=== PATIENT | female | born 1995 | race Caucasian/White ===

== ENCOUNTER 2016-06-22 16:21 | Emergency (ER) | payer SELFPAY ==
--- NOTE | 2016-06-22 16:54 | EDM.PDOC ---
ED HPI Trauma - General Chief Complaint: Upper Extremity Injury/Pain Stated Complaint: PAIN RT WRIST Time Seen by Provider: 06/22/16 16:40 Source: Reports: Patient History Limitations: Reports: No limitations - History of Present Illness INITIAL COMMENTS - FREE TEXT/NARRATIVE: HISTORY AND PHYSICAL: History of present illness: [Patient comes to the emergency room complaining of right wrist pain. She states that she slipped on some ice last night, landing with her right arm outstretched behind her with her wrist flexed. She's had pain, bruising and swelling since it occurred. Previous right wrist fracture approximately 5 years ago. No numbness or tingling. No other injuries sustained in the fall.] Review of systems: As per history of present illness and below otherwise all systems reviewed and negative. Past medical history: As per history of present illness and as reviewed below otherwise noncontributory. Surgical history: As per history of present illness and as reviewed below otherwise noncontributory. Social history: No reported history of drug or alcohol abuse. Family history: As per history of present illness and as reviewed below otherwise noncontributory. Physical exam: HEENT: Atraumatic, normocephalic. Extremities: Left wrist is mildly swollen and bruised. Has pain with flexion and extension of her R wrist, as well as rotation and lateral flexion. Cap refill <2 seconds. Neurovascular unremarkable. Neuro: Awake, alert, oriented. Exam nonfocal. Diagnostics: [Right wrist x-ray] Impression: [Right wrist strain] Plan: [Wrist x-ray is negative for fracture dislocation. Patient is placed in a wrist splint. Tylenol or ibuprofen as needed for discomfort. All questions are answered and concerns are addressed.] Definitive disposition and diagnosis as appropriate pending reevaluation and review of above. Allergies/ADRs: Allergies lidocaine Allergy (Verified 06/22/16 16:23) Other Penicillins Allergy (Verified 06/22/16 16:23) Other Home Medications: Ambulatory Orders . 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 (see below) Other OB/BYN History: Neurological History: Reports: None Psychiatric History: Reports: None Endocrine/Metabolic History: Reports: None Hematologic History: Reports: None Immunologic History: Reports: None Oncologic (Cancer) History: Reports: None Dermatologic History: Reports: None - Infectious Disease History Infectious Disease History: Reports: Chicken pox - Past Surgical History Head Surgeries/Procedures: Reports: None HEENT Surgical History: Reports: Adenoidectomy, Tonsillectomy Musculoskeletal Surgical History: Reports: Arthroscopic knee, Other (see below) Other Musculoskeletal Surgeries/Procedures:: rt knee cyst removal, cartlidge replaced Social & Family History - Family History Family Medical History: Noncontributory - Tobacco Use Smoking Status *Q: Current Every Day Smoker Years of Tobacco use: 6 Packs/Tins Daily: 0.5 - Caffeine Use Caffeine Use: Reports: Coffee, Energy drinks Caffeine Use Comment: 2-3/day - Recreational Drug Use Recreational Drug Use: No Review of Systems - Review of Systems Review Of Systems: See Below Trauma Exam - Physical Exam Exam: See Below Course - Vital Signs Last Recorded V/S: Last Vital Signs Temp 98.3 F 06/22/16 17:30 Pulse 71 06/22/16 17:30 Resp 16 06/22/16 17:30 BP 116/60 06/22/16 17:30 Pulse Ox 98 06/22/16 17:30 - Orders/Labs/Meds Orders: Active Orders 24 hr Category Date Time Status Wrist Comp Min 3V Rt [CR] Stat Exams 06/22/16 16:39 Taken Departure - Departure Time of Disposition: 17:20 Disposition: Home, Self-Care 01 Condition: good Clinical Impression: Right wrist sprain Qualifiers: Encounter type: initial encounter Qualified Code(s): S63.501A - Unspecified sprain of right wrist, initial encounter Instructions: Wrist Pain, [id number] Referrals: PCP,None [Primary Care Provider] - Forms: ED Department Discharge Additional Instructions: The following information is given to patients seen in the emergency department who are being discharged to home. This information is to outline your options for follow-up care. We provide all patients seen in our emergency department with a follow-up referral. The need for follow-up, as well as the timing and circumstances, are variable depending upon the specifics of your emergency department visit. If you don't have a primary care physician on staff, we will provide you with a referral. We always advise you to contact your personal physician following an emergency department visit to inform them of the circumstance of the visit and for follow-up with them and/or the need for any referrals to a consulting specialist. The emergency department will also refer you to a specialist when appropriate. This referral assures that you have the opportunity for follow-up care with a specialist. All of these measure are taken in an effort to provide you with optimal care, which includes your follow-up. Under all circumstances we always encourage you to contact your private physician who remains a resource for coordinating your care. When calling for follow-up care, please make the office aware that this follow-up is from your recent emergency room visit. If for any reason you are refused follow-up, please contact the [facility] emergency department at and asked to speak to the emergency department charge nurse. [facility] Primary [facility] [address] [place] [id number] Followup with your local primary care provider or at the clinic listed above in 48-72 hours. Wear wrist brace until pain has improved. May apply ice and elevate as much as necessary. Recommend Tylenol alternating with ibuprofen for discomfort. Return to ER as needed as discussed - My Orders Last 24 Hours: My Active Orders 06/22/16 16:39 Wrist Comp Min 3V Rt [CR] Stat - Assessment/Plan Last 24 Hours: My Active Orders 06/22/16 16:39 Wrist Comp Min 3V Rt [CR] Stat
[2016-06-22 17:40] VITALS: BP 116/60
--- NOTE | 2016-06-23 18:47 | CR ---
EXAM DATE: 06/22/16 PATIENT'S AGE: 20 Patient: SUJEY GO Facility: [place], [place] Site . Site : 1995 Study: XRay Extremity Right wrist [id number]/5/[id number] 4:54:28 PM Ordering Physician: Doctor Velazquez Final Report: INDICATION: injury, pain with movement INDICATION: Injury. Pain with movement. TECHNIQUE: Right wrist, three views. COMPARISON: None FINDINGS: Bones: Alignment is normal. No fractures or bone lesions. Joint spaces: Unremarkable. Soft tissues: Unremarkable. IMPRESSION: No acute bone abnormality. The proximal/distal rows of the carpus are intact. Dictated by Arthur George MD @ 06/22/2016 5:13:58 PM Dictated by: Arthur George MD @ 06/22/2016 17:14:08 (Electronic Signature) Report Signed by Proxy and Original Signed Document filed in the Medical Record. MTDD
== END 2016-06-22 17:30 | disposition home or self-care (01) ==
LOC: MW.ED 16:21
DX: S63.501A Unspecified sprain of right wrist, initial encounter (principal); F17.210 Nicotine dependence, cigarettes, uncomplicated; Z98.890 Other specified postprocedural states; W00.0XXA Fall on same level due to ice and snow, initial encounter
CPT/HCPCS: 73110-26-RT; 73110-RT; 99282; 99283

== ENCOUNTER 2017-12-18 04:35 | Inpatient (IN) | payer MEDICAID ==
[2017-12-18] MEDS: Lactated Ringers 1,000 ML IV SCH ×2 (05:16→06:40)
[2017-12-18] MEDS ORDERED: Citric Acid/Sodium Citrate Solution 30 ML Cup PO ONE (05:28)
[2017-12-18] MEDS ORDERED: Sodium Chloride 0.9% 10 ML Syringe FLUSH PRN (05:28)
[2017-12-18] MEDS ORDERED: Sodium Chloride 0.9% 2.5 ML Syringe FLUSH PRN (05:28)
[2017-12-18] MEDS ORDERED: Oxytocin/0.9 % Sodium Chloride 30 UNIT/500 ML BAG IV SCH (05:30)
[2017-12-18] MEDS ORDERED: Azithromycin 500 MG in Sodium Chloride 0.9% 500 ML IV ONE (05:36)
--- NOTE | 2017-12-18 06:37 | PCM.PREANE ---
Preanesthetic Assessment - Anesthesia/Transfusion/Family Hx Anesthesia History: Prior Anesthesia Without Reaction Transfusion History: No Prior Transfusion(s) - Review of Systems General: No Symptoms Pulmonary: No Symptoms Cardiovascular: No Symptoms Gastrointestinal: No Symptoms Neurological: No Symptoms Other: Reports: None - Physical Assessment Height: 5 ft 2 in Weight: 70.307 kg ASA Class: 2 Mental Status: Alert & Oriented x3 Airway Class: Mallampati = 2 Dentition: Reports: Normal Dentition Thyro-Mental Finger Breadths: 3 Mouth Opening Finger Breadths: 3 ROM/Head Extension: Full Lungs: Clear to Auscultation, Normal Respiratory Effort Cardiovascular: Regular Rate, Regular Rhythm - Lab Values: Laboratory Last Values WBC 16.04 K/uL (4.0-11.0) H 12/18/17 05:50 RBC 3.37 M/uL (4.30-5.90) L 12/18/17 05:50 Hgb 9.9 g/dL (12.0-16.0) L 12/18/17 05:50 Hct 30.1 % (36.0-46.0) L 12/18/17 05:50 MCV 89.3 fL (80.0-98.0) 12/18/17 05:50 MCH 29.4 pg (27.0-32.0) 12/18/17 05:50 MCHC 32.9 g/dL (31.0-37.0) 12/18/17 05:50 RDW Std Deviation 46.0 fl (28.0-62.0) 12/18/17 05:50 RDW Coeff of Tiffany 14 % (11.0-15.0) 12/18/17 05:50 Plt Count 337 K/uL (150-400) 12/18/17 05:50 MPV 10.30 fL (7.40-12.00) 12/18/17 05:50 Nucleated RBC % 0.0 /100WBC 12/18/17 05:50 Nucleated RBCs # 0 K/uL 12/18/17 05:50 Blood Type B POSITIVE 12/17/17 12:11 Antibody Screen NEGATIVE 12/17/17 12:11 Crossmatch See Detail 12/17/17 12:11 - Allergies Allergies/Adverse Reactions: Allergies Allergy/AdvReac Type Severity Reaction Status Date / Time lidocaine Allergy Cannot Verified 12/18/17 04:15 Remember Penicillins Allergy Cannot Verified 12/18/17 04:15 Remember - Anesthesia Plan Free Text/Narrative:: Patient Type and Crossed due to anemia on admission, prior to hydration. 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 History: Reports: : 5 Para: 1 LMP (Approximate): Other OB/BYN History: Musculoskeletal History: Reports: Fracture Neurological History: Reports: Concussion Psychiatric History: Reports: None Endocrine/Metabolic History: Reports: None Hematologic History: Reports: Anemia Immunologic History: Reports: None Oncologic (Cancer) History: Reports: None Dermatologic History: Reports: None - Infectious Disease History Infectious Disease History: Reports: Chicken Pox - Past Surgical History Head Surgeries/Procedures: Reports: None Female Surgical History: Reports: Section (Classical incision) Musculoskeletal Surgical History: Reports: Arthroscopic Knee, Other (See Below) Other Musculoskeletal Surgeries/Procedures:: surgical tx for fx rt elbow and rt wrist - SUBSTANCE USE Smoking Status *Q: Current Every Day Smoker Tobacco Use Within Last Twelve Months: Cigarettes Second Hand Smoke Exposure: Yes Recreational Drug Use History: No - HOME MEDS Home Medications: Home Meds PNV95/Ferrous Fumarate/FA [ Vitamin Tablet] 1 tab PO DAILY 12/15/17 [ History] - CURRENT (IN HOUSE) MEDS Current Meds: Current Medications Azithromycin 500 mg/ Sodium (Chloride) 500 mls @ 500 mls/hr IV ONETIME ONE Stop: 12/18/17 06:35 Lactated Ringer's (Ringers, Lactated) 1,000 mls @ 500 mls/hr IV BOLUS MARGARET Last Admin: 12/18/17 05:16 Dose: 500 mls/hr Oxytocin/Sodium Chloride (Oxytocin 30 Unit/500 Ml-Ns) 30 unit in 500 mls @ 250 mls/hr IV TITRATE MARGARET Sodium Chloride (Saline Flush) 10 ml FLUSH ASDIRECTED PRN PRN Reason: Keep Vein Open Sodium Chloride (Saline Flush) 2.5 ml FLUSH ASDIRECTED PRN PRN Reason: Keep Vein Open Discontinued Medications Citric Acid/Sodium Citrate (Bicitra Solution) 30 ml PO ONETIME ONE Stop: 12/18/17 05:29
[2017-12-18] MEDS ORDERED: Oxytocin 10 Units/1 ML SDV ONE (06:48)
[2017-12-18] MEDS ORDERED: Morphine PF 1 MG/ML Amp ONE (06:48)
[2017-12-18] MEDS ORDERED: Ondansetron 4 MG/2 ML SDV ONE (06:48)
[2017-12-18] MEDS ORDERED: Azithromycin 500 MG in Sodium Chloride 0.9% 250 ML IV ONE (07:15)
[2017-12-18] MEDS ORDERED: Octyl 2-Cyanoacrylate 1 Tube ONE (07:30)
--- NOTE | 2017-12-18 07:34 | PCM.SN ---
- Free Text/Narrative Note: pt seen and interviewed. prior emergent c/s for distress at 29 weeks. Plan spinal with duramorph
[2017-12-18] MEDS ORDERED: Phenylephrine 1% 10 MG/ML SDV ONE (07:46)
[2017-12-18] MEDS ORDERED: Methylergonovine 0.2 MG/1 ML Amp ONE (07:50)
[2017-12-18] MEDS ORDERED: fentaNYL 100 MCG/2 ML SDV IVPUSH PRN (07:55)
[2017-12-18] MEDS ORDERED: Acetaminophen/oxyCODONE 325-5 MG Tab PO PRN ×3 (07:55→08:20)
[2017-12-18] MEDS ORDERED: Bisacodyl 10 MG Supp RECTAL PRN (08:20)
[2017-12-18] MEDS ORDERED: Ondansetron 4 MG/2 ML SDV IV PRN (08:20)
[2017-12-18] MEDS ORDERED: Lanolin 100% Cream 7 GM Tube TOP PRN (08:20)
--- NOTE | 2017-12-18 08:20 | PCM.OPNOTE ---
- General Post-Op/Procedure Note Date of Surgery/Procedure: 12/18/17 Operative Procedure(s): repeat low transverse Findings: Liveborn male 12/27 weight 2640 grams, normal appearing uterus, tubes and ovaries with 2 right paratubal cysts noted Pre Op Diagnosis: 37 weeks intrauterine , prior classical Post-Op Diagnosis: Same Anesthesia Technique: Spinal Primary Surgeon: Laurie Crowley Anesthesia Provider: Kt Saldaña Pathology: none Fluid Replacement, Intraop: 1,500 EBL in mLs: 500 Complications: None known Condition: Stable
[2017-12-18] MEDS ORDERED: Lactated Ringers 1,000 ML IV SCH (08:30)
[2017-12-18] MEDS: Ketorolac 30 MG/ML SDV IVPUSH SCH ×3 (08:40→20:22)
--- NOTE | 2017-12-18 09:14 | PCM.POSTAN ---
POST ANESTHESIA ASSESSMENT - MENTAL STATUS Mental Status: Alert, Oriented - RESPIRATORY Respiratory Status: Respiratory Rate WNL, Airway Patent, O2 Saturation Stable - CARDIOVASCULAR CV Status: Pulse Rate WNL, Blood Pressure Stable - GASTROINTESTINAL GI Status: No Symptoms - POST OP HYDRATION Hydration Status: Adequate & Stable
[2017-12-18] MEDS: diphenhydrAMINE 50 MG/ML SDV IVPUSH PRN ×2 (10:04→17:07)
--- NOTE | 2017-12-18 11:48 | OR ---
SURGEON: Laurie Crowley M.D. DATE OF PROCEDURE: 12/18/2017 PREOPERATIVE DIAGNOSES: 1. 37 week intrauterine . 2. Prior classical uterine incision. POSTOPERATIVE DIAGNOSES: 1. 37 week intrauterine . 2. Prior classical uterine incision. PROCEDURE: Repeat low-transverse section. ANESTHESIA: Spinal. ESTIMATED BLOOD LOSS: 500 mL. FLUIDS: 1500 mL crystalloid. FINDINGS: Live-born male, scores 9 and 9, weighing 2640 g. Normal-appearing uterus, tubes, and ovaries. Note of 2 small paratubal cysts on the right. COMPLICATIONS: None known. DISPOSITION: Mother is in recovery in good condition. Infant is in nursery in good condition. BRIEF HISTORY: This is a 22-year-old female, she has had 1 prior requiring a vertical extension of the incision. Therefore I did recommend delivery at 37 weeks. She had received steroids, 2 doses one week ago and presents for repeat delivery. Risks were discussed including bleeding, infection, injury to bowel, bladder, blood vessels, ureters, or other organs, risk of thromboembolic event, risk of anesthesia. Understanding all these risks, she does desire to proceed. DESCRIPTION OF PROCEDURE: With the patient in left tilt position, under adequate spinal analgesia, the abdomen was prepped with chlorhexidine and draped in usual fashion for abdominal surgery. SCDs were in place. Bolaños catheter was in place. She had received 500 mg of Ancef IV due penicillin allergy. An appropriate time-out was held. After documentation of adequate analgesia, the prior cicatrix was excised. The incision was carried through the subcutaneous tissue to the fascia, which was scored transversely in the midline. The fascial incision was elevated from the underlying rectus muscle using sharp and blunt dissection. The rectus muscles were in the midline using sharp dissection. A finger was placed into the peritoneal cavity, there were adhesions of the omentum off to the left of the incision. Otherwise, no pelvic or peritoneal adhesions. The incision was extended using sharp and blunt dissection. The En O retractor was placed. The visceroperitoneum over the lower uterine segment was incised and an adequate bladder flap was developed. A transverse curvilinear incision was made over the lower uterine segment with a scalpel. A finger was used to extend this incision. The amniotic membranes were ruptured, clear fluid was noted. The head and body were delivered via the uterine incision with fundal pressure without any difficulty. The was bulb suctioned by nose and mouth. The cord was clamped x2 and cut. The handed to the nurse in attendance at delivery. The infant is a liveborn male, scores 9 and 9, weighing 2640 g. Cord blood was collected for cord ABGs as well as routine cord blood sampling. The placenta was removed by manual extraction. The cervix was opened with a ring forceps. The uterus was cleaned with a dry laparotomy tape. The uterus was noted to be somewhat boggy, therefore the patient received Methergine 0.2 mg subcu. With this, there was excellent tone of the uterus. The uterine incision was closed with a running lock suture of 0 Polysorb followed by an imbricating layer of 0 Polysorb. The posterior cul-de-sac and paracolic gutters were cleaned and inspected. Tubes and ovaries appeared normal. Uterine incision required one additional [id number] suture in the midline for complete hemostasis. The uterine incision was carefully inspected and was hemostatic, therefore the En O retractor was removed. Final inspection was performed with complete hemostasis noted. Therefore, the rectus muscle and peritoneum were loosely approximated in the midline using a running mattress suture of 0 Polysorb. The posterior aspect of the fascia was inspected, any areas of bleeding that were noted were cauterized. The fascial incision was closed with a running suture of 0 Polysorb and subcutaneous tissue was irrigated. Any areas of bleeding that were noted were cauterized. The skin was closed with a running subcuticular suture of 3-0 Monocryl followed by Dermabond. Final sponge, needle, and instrument counts were reported as correct. There were no known complications. Mother is in recovery in good condition. in nursery in good condition. MARY / AVINASH /[id number]
[2017-12-18] MEDS: Nalbuphine 10 MG/1 ML Vial IVPUSH PRN ×2 (14:24→20:23)
--- NOTE | 2017-12-18 14:24 | PCM48HPAN ---
Post Anesthesia Note - EVALUATION WITHIN 48HRS OF ANESTHETIC Vital Signs in Normal Range: Yes Patient Participated in Evaluation: Yes Respiratory Function Stable: Yes Airway Patent: Yes Cardiovascular Function Stable: Yes Hydration Status Stable: Yes Pain Control Satisfactory: Yes Nausea and Vomiting Control Satisfactory: Yes Mental Status Recovered: Yes Resp Rate: 18
[2017-12-18] MEDS: Docusate Sodium 100 MG Cap PO SCH ×2 (14:49→20:20)
[2017-12-18] MEDS: Prenatal Multivitamin and Multimineral with Iron Tab PO SCH (19:12)
[2017-12-19] MEDS: Ketorolac 30 MG/ML SDV IVPUSH SCH ×2 (02:44→08:26)
[2017-12-19] MEDS: Nalbuphine 10 MG/1 ML Vial IVPUSH PRN ×2 (04:05→07:58)
--- NOTE | 2017-12-19 05:32 | PCM.PNPP ---
- General Info Date of Service: 12/19/17 Admission Dx/Problem (Free Text): 22 yo P2 s/p repeat POD1 Subjective Update: Patient seen at bedside denies any complain , U/O is adequate , pain well controlled , lepe in place tolerate regular diet Functional Status: Reports: Pain Controlled, Tolerating Diet - Review of Systems General: Reports: No Symptoms HEENT: Reports: No Symptoms Pulmonary: Reports: No Symptoms Cardiovascular: Reports: No Symptoms Gastrointestinal: Reports: No Symptoms Genitourinary: Reports: No Symptoms Musculoskeletal: Reports: No Symptoms Skin: Reports: No Symptoms Neurological: Reports: No Symptoms Psychiatric: Reports: No Symptoms - General Info Date of Service: 12/19/17 - Patient Data Vital Signs - Most Recent: Last Vital Signs Temp 36.6 C 12/19/17 04:00 Pulse 64 12/19/17 04:00 Resp 14 12/19/17 04:00 BP 109/51 L 12/19/17 04:00 Pulse Ox 97 12/19/17 04:00 Weight - Most Recent: 70.307 kg I&O - Last 24 Hours: Intake & Output 12/18/17 12/18/17 12/19/17 14:59 22:59 06:59 Intake Total 3200 3875 Output Total 600 2600 Balance 2600 1275 Lab Results - Last 24 Hours: Laboratory Results - last 24 hr 12/17/17 12/18/17 12/18/17 Range/Units 12:11 05:50 07:46 WBC 16.04 H (4.0-11.0) K/uL RBC 3.37 L (4.30-5.90) M/uL Hgb 9.9 L (12.0-16.0) g/dL Hct 30.1 L (36.0-46.0) % MCV 89.3 (80.0-98.0) fL MCH 29.4 (27.0-32.0) pg MCHC 32.9 (31.0-37.0) g/dL RDW Std Deviation 46.0 (28.0-62.0) fl RDW Coeff of Tiffany 14 (11.0-15.0) % Plt Count 337 (150-400) K/uL MPV 10.30 (7.40-12.00) fL Nucleated RBC % 0.0 /100WBC Nucleated RBCs # 0 K/uL Cord ABG pH 7.335 (7.18-7.38) Cord ABG Base Excess -3 (-10--2) Cord VBG pH (7.25-7.45) Cord VBG Base Excess (-10--2) Blood Type B POSITIVE Antibody Screen NEGATIVE Crossmatch See Detail 12/18/17 Range/Units 07:46 WBC (4.0-11.0) K/uL RBC (4.30-5.90) M/uL Hgb (12.0-16.0) g/dL Hct (36.0-46.0) % MCV (80.0-98.0) fL MCH (27.0-32.0) pg MCHC (31.0-37.0) g/dL RDW Std Deviation (28.0-62.0) fl RDW Coeff of Tiffany (11.0-15.0) % Plt Count (150-400) K/uL MPV (7.40-12.00) fL Nucleated RBC % /100WBC Nucleated RBCs # K/uL Cord ABG pH (7.18-7.38) Cord ABG Base Excess (-10--2) Cord VBG pH 7.362 (7.25-7.45) Cord VBG Base Excess -5 (-10--2) Blood Type Antibody Screen Crossmatch Med Orders - Current: Current Medications Bisacodyl (Dulcolax) 10 mg RECTAL ONETIME PRN PRN Reason: Constipation Diphenhydramine HCl (Benadryl) 25 mg IVPUSH Q6H PRN PRN Reason: Itching or Nausea Last Admin: 12/18/17 17:07 Dose: 25 mg Docusate Sodium (Colace) 100 mg PO BID MARGARET Last Admin: 12/18/17 20:20 Dose: 100 mg Emollient Ointment (Lansinoh Hpa) 0 gm TOP ASDIRECTED PRN PRN Reason: Sore Nipples Last Admin: 12/18/17 20:21 Dose: 1 tube Fentanyl (Sublimaze) 50 mcg IVPUSH Q5M PRN PRN Reason: Pain (severe 7-10) Stop: 12/19/17 07:55 Lactated Ringer's (Ringers, Lactated) 1,000 mls @ 500 mls/hr IV BOLUS [facility] Last Admin: 12/18/17 06:40 Dose: 500 mls/hr Oxytocin/Sodium Chloride (Oxytocin 30 Unit/500 Ml-Ns) 30 unit in 500 mls @ 250 mls/hr IV TITRATE [facility] Lactated Ringer's (Ringers, Lactated) 1,000 mls @ 125 mls/hr IV ASDIRECTED [facility] Last Admin: 12/18/17 10:58 Dose: 125 mls/hr Ibuprofen (Motrin) 800 mg PO Q8H PRN PRN Reason: mild pain or fever Ketorolac Tromethamine (Toradol) 30 mg IVPUSH Q6H [facility] Stop: 12/19/17 08:31 Last Admin: 12/19/17 02:44 Dose: 30 mg Nalbuphine HCl (Nubain) 2.5 mg IVPUSH Q3H PRN PRN Reason: Pruritis Stop: 12/19/17 07:55 Last Admin: 12/19/17 04:05 Dose: 2.5 mg Ondansetron HCl (Zofran) 4 mg IV Q4H PRN PRN Reason: Nausea/Vomiting Oxycodone/Acetaminophen (Percocet 325-5 Mg) 1 tab PO ONETIME PRN PRN Reason: Pain (moderate 4-6) Oxycodone/Acetaminophen (Percocet 325-5 Mg) 1 tab PO Q4H PRN PRN Reason: Pain (moderate 4-6) Oxycodone/Acetaminophen (Percocet 325-5 Mg) 2 tab PO Q4H PRN PRN Reason: Pain (moderate 4-6) Prenat Multivit/[place]/Iron/Folic Ac ( Mtr) 1 each PO DAILY [facility] Last Admin: 12/18/17 19:12 Dose: Not Given Sodium Chloride (Saline Flush) 10 ml FLUSH ASDIRECTED PRN PRN Reason: Keep Vein Open Sodium Chloride (Saline Flush) 2.5 ml FLUSH ASDIRECTED PRN PRN Reason: Keep Vein Open Discontinued Medications Citric Acid/Sodium Citrate (Bicitra Solution) 30 ml PO ONETIME ONE Stop: 12/18/17 05:29 Last Admin: 12/18/17 07:14 Dose: 30 ml Azithromycin 500 mg/ Sodium (Chloride) 500 mls @ 500 mls/hr IV ONETIME ONE Stop: 12/18/17 06:35 Last Admin: 12/18/17 08:17 Dose: Not Given Azithromycin 500 mg/ Sodium (Chloride) 250 mls @ 250 mls/hr IV ONETIME ONE Stop: 12/18/17 08:14 Last Admin: 12/18/17 07:10 Dose: 250 mls/hr Methylergonovine Maleate (Methergine) Confirm Administered Dose 0.2 mg .ROUTE .STK-MED ONE Stop: 12/18/17 07:51 Morphine Sulfate (Duramorph Pf) Confirm Administered Dose 1 mg .ROUTE .STK-MED ONE Stop: 12/18/17 06:49 Octyl Cyanoacrylate (Dermabond Advance) Confirm Administered Dose 1 applic .ROUTE .STK-MED ONE Stop: 12/18/17 07:31 Ondansetron HCl (Zofran) Confirm Administered Dose 4 mg .ROUTE .STK-MED ONE Stop: 12/18/17 06:49 Oxytocin (Pitocin) Confirm Administered Dose 20 unit .ROUTE .STK-MED ONE Stop: 12/18/17 06:49 Phenylephrine HCl (Dandy-Synephrine) Confirm Administered Dose 10 mg .ROUTE .STK- MED ONE Stop: 12/18/17 07:47 - Infant Interaction Support Person: Significant Other - Recovery Exam Fundal Tone: Firm Fundal Level: 1 Fingerbreadths Below Umbilicus Fundal Placement: Midline Lochia Amount: Scant Lochia Color: Rubra/Red Perineum Description: Intact, Minimal Bruising/Swelling Episiotomy/Laceration: Not Approximated Bladder Status: Indwelling Catheter in Place Urinary Elimination: Indwelling Catheter - Exam General: Alert HEENT: Pupils Equal Neck: Supple Lungs: Clear to Auscultation Cardiovascular: Regular Rate, Regular Rhythm GI/Abdominal Exam: Normal Bowel Sounds (pfannestiel skin incision c/d/i) Extremities: Normal Inspection Neurological: No New Focal Deficit Psy/Mental Status: Alert - Problem List & Annotations (1) delivery delivered SNOMED Code(s): 064968067 Code(s): O82 - ENCOUNTER FOR DELIVERY WITHOUT INDICATION Status: Acute Current Visit: Yes - Problem List Review Problem List Initiated/Reviewed/Updated: Yes - Assessment Assessment:: 22 yo p2032 S/P repeat , POD 1 , stable , normal lochia - Plan Plan:: Ambulate Continue regular diet Remove lepe Pain control as needed
[2017-12-19] MEDS: Docusate Sodium 100 MG Cap PO SCH ×2 (08:25→21:06)
[2017-12-19] MEDS: Prenatal Multivitamin and Multimineral with Iron Tab PO SCH (08:25)
[2017-12-19] MEDS: Ibuprofen 800 MG Tab PO PRN (19:17)
[2017-12-20 07:49] VITALS: BP 114/55
[2017-12-20] MEDS: Ibuprofen 800 MG Tab PO PRN (08:17)
[2017-12-20] MEDS: Docusate Sodium 100 MG Cap PO SCH (08:56)
[2017-12-20] MEDS: Prenatal Multivitamin and Multimineral with Iron Tab PO SCH (08:56)
--- NOTE | 2017-12-20 09:51 | PCM.PNPP ---
- General Info Date of Service: 12/20/17 Admission Dx/Problem (Free Text): 22 yo P2 s/p repeat POD2 Subjective Update: Patient seen at bedside denies any complain , U/O is adequate , pain well controlled ,voided , tolerating regular diet Functional Status: Reports: Pain Controlled, Tolerating Diet, Ambulating, Urinating - Review of Systems General: Reports: No Symptoms HEENT: Reports: No Symptoms Pulmonary: Reports: No Symptoms Cardiovascular: Reports: No Symptoms Gastrointestinal: Reports: No Symptoms Genitourinary: Reports: No Symptoms Musculoskeletal: Reports: No Symptoms Skin: Reports: No Symptoms Neurological: Reports: No Symptoms Psychiatric: Reports: No Symptoms - General Info Date of Service: 12/20/17 - Patient Data Vital Signs - Most Recent: Last Vital Signs Temp 36.6 C 12/20/17 07:48 Pulse 75 12/20/17 07:48 Resp 16 12/20/17 07:48 BP 114/55 L 12/20/17 07:48 Pulse Ox 97 12/20/17 07:48 Weight - Most Recent: 70.307 kg Med Orders - Current: Current Medications Bisacodyl (Dulcolax) 10 mg RECTAL ONETIME PRN PRN Reason: Constipation Diphenhydramine HCl (Benadryl) 25 mg IVPUSH Q6H PRN PRN Reason: Itching or Nausea Last Admin: 12/18/17 17:07 Dose: 25 mg Docusate Sodium (Colace) 100 mg PO BID [facility] Last Admin: 12/20/17 08:56 Dose: 100 mg Emollient Ointment (Lansinoh Hpa) 0 gm TOP ASDIRECTED PRN PRN Reason: Sore Nipples Last Admin: 12/18/17 20:21 Dose: 1 tube Lactated Ringer's (Ringers, Lactated) 1,000 mls @ 500 mls/hr IV BOLUS [facility] Last Admin: 12/18/17 06:40 Dose: 500 mls/hr Oxytocin/Sodium Chloride (Oxytocin 30 Unit/500 Ml-Ns) 30 unit in 500 mls @ 250 mls/hr IV TITRATE MARGARET Lactated Ringer's (Ringers, Lactated) 1,000 mls @ 125 mls/hr IV ASDIRECTED [facility] Last Admin: 12/18/17 10:58 Dose: 125 mls/hr Ibuprofen (Motrin) 800 mg PO Q8H PRN PRN Reason: mild pain or fever Last Admin: 12/20/17 08:17 Dose: 800 mg Ondansetron HCl (Zofran) 4 mg IV Q4H PRN PRN Reason: Nausea/Vomiting Oxycodone/Acetaminophen (Percocet 325-5 Mg) 1 tab PO ONETIME PRN PRN Reason: Pain (moderate 4-6) Oxycodone/Acetaminophen (Percocet 325-5 Mg) 1 tab PO Q4H PRN PRN Reason: Pain (moderate 4-6) Last Admin: 12/19/17 15:25 Dose: 1 tab Oxycodone/Acetaminophen (Percocet 325-5 Mg) 2 tab PO Q4H PRN PRN Reason: Pain (moderate 4-6) Last Admin: 12/19/17 23:06 Dose: 2 tab Prenat Multivit/[employer]/Iron/Folic Ac ( Mtr) 1 each PO DAILY MARGARET Last Admin: 12/20/17 08:56 Dose: 1 each Sodium Chloride (Saline Flush) 10 ml FLUSH ASDIRECTED PRN PRN Reason: Keep Vein Open Sodium Chloride (Saline Flush) 2.5 ml FLUSH ASDIRECTED PRN PRN Reason: Keep Vein Open Discontinued Medications Citric Acid/Sodium Citrate (Bicitra Solution) 30 ml PO ONETIME ONE Stop: 12/18/17 05:29 Last Admin: 12/18/17 07:14 Dose: 30 ml Fentanyl (Sublimaze) 50 mcg IVPUSH Q5M PRN PRN Reason: Pain (severe 7-10) Stop: 12/19/17 07:55 Azithromycin 500 mg/ Sodium (Chloride) 500 mls @ 500 mls/hr IV ONETIME ONE Stop: 12/18/17 06:35 Last Admin: 12/18/17 08:17 Dose: Not Given Azithromycin 500 mg/ Sodium (Chloride) 250 mls @ 250 mls/hr IV ONETIME ONE Stop: 12/18/17 08:14 Last Admin: 12/18/17 07:10 Dose: 250 mls/hr Ketorolac Tromethamine (Toradol) 30 mg IVPUSH Q6H MARGARET Stop: 12/19/17 08:31 Last Admin: 12/19/17 08:26 Dose: 30 mg Methylergonovine Maleate (Methergine) Confirm Administered Dose 0.2 mg .ROUTE .STK-MED ONE Stop: 12/18/17 07:51 Morphine Sulfate (Duramorph Pf) Confirm Administered Dose 1 mg .ROUTE .STK-MED ONE Stop: 12/18/17 06:49 Nalbuphine HCl (Nubain) 2.5 mg IVPUSH Q3H PRN PRN Reason: Pruritis Stop: 12/19/17 07:55 Last Admin: 12/19/17 07:58 Dose: 2.5 mg Octyl Cyanoacrylate (Dermabond Advance) Confirm Administered Dose 1 applic .ROUTE .STK-MED ONE Stop: 12/18/17 07:31 Ondansetron HCl (Zofran) Confirm Administered Dose 4 mg .ROUTE .STK-MED ONE Stop: 12/18/17 06:49 Oxytocin (Pitocin) Confirm Administered Dose 20 unit .ROUTE .STK-MED ONE Stop: 12/18/17 06:49 Phenylephrine HCl (Dandy-Synephrine) Confirm Administered Dose 10 mg .ROUTE .STK- MED ONE Stop: 12/18/17 07:47 - Infant Interaction Support Person: Significant Other - Recovery Exam Fundal Tone: Firm Fundal Level: 1 Fingerbreadths Below Umbilicus Fundal Placement: Midline Lochia Amount: Scant Lochia Color: Rubra/Red Perineum Description: Intact, Minimal Bruising/Swelling Episiotomy/Laceration: Approximated Bladder Status: Voiding Urinary Elimination: Voided - Exam General: Alert, Oriented HEENT: Pupils Equal Neck: Supple Lungs: Clear to Auscultation Cardiovascular: Regular Rate, Regular Rhythm GI/Abdominal Exam: Normal Bowel Sounds Extremities: Normal Inspection Wound/Incisions: Dressing Dry and Intact Neurological: No New Focal Deficit Psy/Mental Status: Alert - Problem List & Annotations (1) delivery delivered SNOMED Code(s): 882582547 Code(s): O82 - ENCOUNTER FOR DELIVERY WITHOUT INDICATION Status: Acute Current Visit: Yes - Problem List Review Problem List Initiated/Reviewed/Updated: Yes - Assessment Assessment:: 22 yo p2032 S/P repeat , POD 2 , stable , normal lochia - Plan Plan:: Discharge
== END 2017-12-20 10:50 | disposition home or self-care (01) | DRG 766 ==
LOC: MW.OB 04:35
PROVIDERS: ADMIT Obstetrics & Gynecology; ATTEND Obstetrics & Gynecology
PROC: 10D00Z1 Extraction of Products of Conception, Low, Open Approach (ICD-10-PCS; principal; 2017-12-18)
DX: O34.211 Maternal care for low transverse scar from previous cesarean delivery (principal); Z3A.37 37 weeks gestation of pregnancy; Z37.0 Single live birth; N83.8 Other noninflammatory disorders of ovary, fallopian tube and broad ligament
CPT/HCPCS: 36415; 59025; 82803; 85014; 85018; 85027; 86850; 86900; 86901; 86920; 86921; 86922; A9270-GY; J0456; J1200; J1885; J2210; J2274; J2300; J2370; J2405; J2590; J7050; J7120